=== PATIENT | female | born 1935 | race Caucasian/White ===

== ENCOUNTER → 2020-12-27 | Outpatient (CLI) | payer MEDICARE ==
--- NOTE | 2020-12-28 09:55 | BD ---
EXAMINATION TYPE: Axial Bone Density DATE OF EXAM: 12/27/2020 COMPARISON: NONE CLINICAL HISTORY: Height: 62 Weight: 212.5 FRAX RISK QUESTIONS: Alcohol (3 or more units per day): no Family History (Parent hip fracture): no Glucocorticoids (More than 3mos): no (Ex: prednisone, prednisolone, methylprednisolone, dexamethasone, and hydrocortisone). History of Fracture in Adulthood: yes Secondary Osteoporosis: 1. Type 1 Diabetes: no 2. Hyperthyroidism: no 3. Menopause before 45: yes 4. Malnutrition: no 5. Chronic liver disease: no Rheumatoid Arthritis: no Current Tobacco Use: no RISK FACTORS HISTORY OF: Surgery to Spine/Hip(right/left)/Wrist (right/left): no Family History of Osteoporosis: yes Active: yes Diet low in dairy products/other sources of calcium: no Postmenopausal woman: before age 46 Lost more than 2 inches in height since high school: yes MEDICATIONS: blood pressure meds, Protonix, sinus meds, sleeping pills Additional History: EXAM MEASUREMENTS: Bone mineral densitometry was performed using the Trot System. Bone mineral density as measured about the Lumbar spine is: ----- L1-L4(G/cm2): 1.255 T Score Values are as follows: ----- L2: 0.4 ----- L3: 1.2 ----- L4: 0.4 ----- L1-L4: 0.6 Bone mineral density : baseline Bone mineral density about the R hip (g/cm2): 0.841 Bone mineral density about the L hip (g/cm2): 0.713 T Score values are as follows: -----R Neck: -1.4 -----L Neck: -2.3 -----R Total: -1.4 -----L Total: -2.0 Bone mineral density : baseline Major osteoporotic fracture risk is 15.9% and hip fracture risk is 5.2% in 10 year probability of fra cture. IMPRESSION: Osteopenia (T Score between -2.5 and -1). There is slightly increased risk of fracture and the patient may be considered for treatment. Re-Screen 2-5 years. NOTE: T-SCORE=SD OF THE YOUNG ADULT MEAN.
== END | disposition home or self-care (01) ==
LOC: RADBDWWP 12:43
PROVIDERS: ATTEND Family Medicine
DX: M85.89 Other specified disorders of bone density and structure, multiple sites (principal)
CPT/HCPCS: 77080

== ENCOUNTER → 2021-01-23 | Outpatient (CLI) | payer MEDICARE ==
[2021-01-23 11:13] LABS: HGB 14.8 gm/dL (11.4-16.0); MCH 29.8 pg (25.0-35.0); MCHC 32.9 g/dL (31.0-37.0); MCV 90.6 fL (80.0-100.0); Mean Platelet Volume 9.2; Platelet Count 224 k/uL (150-450); RBC 4.97 m/uL (3.80-5.40); RDW 13.2 % (11.5-15.5); WBC 9.3 k/uL (3.8-10.6)
[2021-01-23 11:27] LABS: INR 0.9 (<1.2); Partial Thromboplastin Time 23.1 sec (22.0-30.0)
[2021-01-23 11:52] LABS: ALT 16 U/L (4-34); AST 29 U/L (14-36); African American GFR (CKD) >90 (>60 ml/min/1.73 sqM); Albumin 4.5 g/dL (3.5-5.0); Alkaline Phosphatase 64 U/L (38-126); Blood Urea Nitrogen 12 mg/dL (7-17); Carbon Dioxide 27 mmol/L (22-30); Glucose 92 mg/dL (74-99); Non-African American GFR(CKD) 81 (>60 ml/min/1.73 sqM); Total Bilirubin 0.9 mg/dL (0.2-1.3); Total Protein 7.4 g/dL (6.3-8.2)
[2021-01-23 11:55] LABS: Anion Gap 9 mmol/L; Chloride 99 mmol/L (98-107); Potassium 4.4 mmol/L (3.5-5.1); Sodium 135 mmol/L (137-145)
[2021-01-23 12:34] LABS: Appearance,Urine Clear (Clear); Bilirubin,Urine Negative (Negative); Blood,Urine Negative (Negative); Color,Urine Light Yellow; Glucose,Urine (UA) Negative (Negative); Ketones,Urine Negative (Negative); Leukocyte Esterase,Urine Negative (Negative); Nitrite,Urine Negative (Negative); PH, Urine 5.5 (5.0-8.0); Protein,Urine Negative (Negative); Specific Gravity,Urine 1.006 (1.001-1.035); Urobilinogen,Urine <2.0 mg/dL (<2.0)
== END | disposition home or self-care (01) ==
LOC: LABPAT 10:17
PROVIDERS: ATTEND Orthopaedic Surgery
DX: Z01.812 Encounter for preprocedural laboratory examination (principal)
CPT/HCPCS: 36415; 80053; 81003; 85027; 85610; 85730; 87070

== ENCOUNTER 2021-02-18 07:17 | Observation (INO) | payer MEDICARE ==
[2021-02-08 13:10] VITALS: BMI 36.3
[~2021-02-18 07:17] MED LIST: ACETAMINOPHEN TAB 500 MG TAB PO PRN; GABAPENTIN 300 MG CAP PO PRN; HYDROmorphone 0.5 MG/0.5 ML SYRINGE IVP PRN; MELOXICAM 7.5 MG TAB PO PRN; ONDANSETRON 4 MG/2 ML VIAL IVP ONE; ROPIVACAINE/EPI/CLONIDINE/KET 50 ML SYRINGE MISCELLANE PRN; TRANEXAMIC ACID 1,000 MG in SODIUM CHLORIDE 0.9% 100 ML IVPB PRN; VANCOMYCIN 1,500 MG in SODIUM CHLORIDE 0.9% 250 ML IVPB PRN
[2021-02-18] MEDS ORDERED: MIDAZOLAM 2 MG/2 ML VIAL IV ONE ×3 (08:15→08:36)
[2021-02-18] MEDS: LACTATED RINGERS 1,000 ML IV SCH (08:15)
[2021-02-18] MEDS ORDERED: MAGNESIUM HYDROXIDE 2,400 MG/10 ML CUP PO PRN (09:00)
[2021-02-18] MEDS ORDERED: NA PHOS,M-B/NA PHOS,DI-BA 133 ML ENEMA RECTAL PRN (09:00)
[2021-02-18] MEDS ORDERED: bisacodyL 10 MG SUPP RECTAL PRN (09:00)
[2021-02-18] MEDS ORDERED: NALOXONE 0.4 MG/ML 1 ML VIAL IV PRN (09:00)
[2021-02-18] MEDS ORDERED: ONDANSETRON 4 MG/2 ML VIAL IVP PRN (09:00)
[2021-02-18] MEDS ORDERED: HYDROmorphone 0.2 MG/1 ML SYRINGE IVP PRN (09:00)
[2021-02-18] MEDS ORDERED: HYDROmorphone 0.5 MG/0.5 ML SYRINGE IVP PRN (09:00)
[2021-02-18] MEDS ORDERED: DEXAMETHASONE SOD PHOSPHATE 4 MG/ML 1 ML VIAL ONE (09:17)
[2021-02-18] MEDS ORDERED: SODIUM CHLORIDE 0.9% 100 ML BAG ONE (09:17)
[2021-02-18] MEDS ORDERED: fentaNYL (PF) 50 MCG/ML 2 ML AMP ONE (09:17)
[2021-02-18] MEDS ORDERED: ROPIVACAINE 5 MG/ML 30 ML VIAL ONE (09:17)
[2021-02-18] MEDS ORDERED: MIDAZOLAM 2 MG/2 ML VIAL ONE (09:17)
[2021-02-18] MEDS ORDERED: TRANEXAMIC ACID 1,000 MG/10 ML VIAL ONE (09:17)
[2021-02-18] MEDS ORDERED: ceFAZolin 1,000 MG in SODIUM CHLORIDE 0.9% 1,000 ML IRRIGATION ONE (09:44)
--- NOTE | 2021-02-18 10:24 | P.OP ---
Date of Procedure: 02/18/21 Preoperative Diagnosis: Severe osteoarthritis left knee Postoperative Diagnosis: Severe osteoarthritis left knee Procedure(s) Performed: Left total knee arthroplasty Implants: Franco [employer] Nephew Journey II CR Oxinium cruciate retaining femoral component size 4, left [employer] Journey nonporous tibial baseplate size 3, left [employer] Journey II, XLPE Deep Dished articular insert, size 9 mm, Size 3- 4, left [employer] Journey Meera II resurfacing patellar component, oval, 29 mm All components were cemented using Palacos R bone cement The articulation is Oxinium on polyethylene Anesthesia: spinal Surgeon: Nikolas Lomas [employer] Specialist #1: Ela Knight Estimated Blood Loss (ml): 30 Pathology: other (Bone and cartilage) Condition: stable Disposition: PACU Indications for Procedure: After failure of conservative treatment we discussed the surgical and nonsurgical treatment options at length. Patient wishes to proceed with a total knee arthroplasty. Complications specific to this procedure were discussed at length, including but not limited to infection, bleeding, stiffness, and nerve injury. Covid-19 was also discussed at length with the patient, and they are aware of the current policies and procedures. The patient was given the option of delaying surgery, but they elect to proceed knowing these risks. Patient is aware of all these complications and informed consent was obtained Operative Findings: The operative findings are consistent with severe osteoarthritis of the left knee Description of Procedure: Patient was seen in the preoperative area and the consent was reviewed and the operative site was marked with a skin marker. The patient verified the procedure and the operative site. An adductor canal pain catheter and an iPACK block was placed by anesthesia in the preoperative area. The patient was then brought to the operating room and given preoperative antibiotics intravenously. A gram of transexamic acid was given intravenously. A spinal anesthetic was administered by the anesthesia department. A tourniquet was placed on the upper thigh and the lower extremity was prepped with chlorhexidine and draped in usual sterile fashion. A universal timeout was then performed which confirmed the patient's name, surgical site, ALLERGIES, and consent. The lower extremity was then exsanguinated and tourniquet was inflated to 250 mmHg. A standard anterior midline approach to the knee was performed. The skin and subcutaneous tissue were sharply dissected down to the patellar tendon. A medial parapatellar arthrotomy was then performed. The knee was then extended, the patellar was everted, and the knee was again flexed. The infra-patellar fat pad was removed in order to enhance exposure. The anterior horns of both menisci were excised, and a release was performed to the posterior medial aspect of the knee. On gross visual inspection, there was complete loss of articular cartilage in the medial and patellofemoral joint spaces. There was also significant cartilage damage in the lateral compartment. There were multiple periarticular osteophytes globally about the knee which were then removed with a Ronguer. The femoral canal was then opened with the 9.5 mm intramedullary drill. The 8 mm intramedullary farrukh was then inserted into the femoral canal with the distal femoral cutting guide set for 5 of valgus. The distal femoral cutting block was then pinned in place. The intramedullary farrukh was then removed, and the distal femur was then cut. The cutting block was then removed and the cut was checked for symmetry. The resected bone was then measured to confirm the appropriate distal femoral resection. Next, the sizing guide was then placed and set for 3 external rotation based off of the epicondylar axis and Whitesides line. Pins were then placed and the drill holes, and the femur was sized with the sizing stylus. The pins were then removed, and the sizing guide was then removed. The spikes of the femoral block was then placed into the predrilled holes, and malleted into place. Two 45 mm pins were then placed into the fixation holes on the cutting block. An shirley wing was then used to ensure there would be no notching with the anterior cut. The anterior condyles were cut without notching. The anterior chord cut was then performed, followed by the posterior cut, posterior chamfer cut, and the anterior chamfer cut. The collateral ligaments were protected during the entire process. The cutting block was then removed. Any remaining bone and osteophytes were removed from the femur with a Rominger. The femoral canal was plugged with autologous bone. Attention was then directed to the tibia. The remaining ACL was removed with a Ronguer, and the tibia was then gently subluxed forward with a large bent knee retractor. Any remaining menisci were excised. The posterior lateral corner was cauterized in order to coagulate the lateral geniculate artery. The extra medullary tibial cutting guide was then placed, set for the appropriate rotation, slope, and depth of resection. The proximal tibia cutting guide was then pinned in place. Proximal tibia was then cut and sized. The femoral trial was placed. A narrow saw blade was then used to remove the anterior intracondylar femoral bone. The CR notch trial was then placed. The tibial trial was placed with the appropriate-sized insert. The knee was able to fully extend and flex to 130 and was stable throughout all range of motion. The knee was then extended and the patella was everted. Patella was then measured, and then using an osteotomy guide, the patella was cut at the appropriate level. The patella was then measured and drilled and the patella trial was then placed. The knee was then taken through range of motion with the patella trial and the patella tracked normally using the no thumbs technique.. The knee was then extended patella trial was then removed and the patella was everted. Knee was then flexed and lug holes were drilled through the femoral trial and the femoral trial was then removed. The tibial was then re-exposed, and the tibial broach guide was then pinned in place after it was set for the appropriate rotation to allow for the most coverage without overhang. The tibia was then reamed and broached. The cut surfaces of bone were then irrigated with pulsatile lavage. The knee was also irrigated with Irrisept solution. The components were then opened, the cement was mixed, and the components were then cemented in place. The cement was allowed to harden with the knee in full extension. After the cemented hardened. The tourniquet was released, and hemostasis was obtained. A second gram of transexamic acid was given intravenously. The knee was again irrigated. The knee was again taken through range of motion and found to be stable throughout all range of motion of 0-130, and the patella tracked normally. The fascia was then closed with 0 Vicryl followed by #2 strata fix suture. The subcutaneous tissue was closed with 3-0 Vicryl and 3-0 strata fix. Exofin glue was used for the skin and placed with the knee in flexion. After the glue had dried, and Optafoam silver impregnated dressing was applied. The patient was then transferred to recovery room in stable condition. The safety assistant MARY ELLEN Lucia was required due the complexity surgery and the need for a skilled medical or surgical instrument maker. She assisted in positioning, draping, retraction, and closure of the wound.
[2021-02-18] MEDS ORDERED: ROPIVACAINE 0.2%-NS ON-Q PUMP 1,090 MG, EMPTY PAIN BALL 1 EACH MISCELLANE PRN (11:11)
--- NOTE | 2021-02-18 11:48 | XR ---
EXAMINATION TYPE: XR knee limited LT DATE OF EXAM: 02/18/2021 CLINICAL HISTORY: Postoperative evaluation Two views of the left knee are submitted. Identified are changes of total knee arthroplasty with fem oral and tibial components appearing well seated. Postsurgical soft tissue changes are noted. Align ment is anatomic.
[2021-02-18] MEDS: CLINDAMYCIN 900 MG in DEXTROSE 5% IN WATER 50 ML IVPB SCH ×4 (13:10→19:21)
[2021-02-18] MEDS: HYDROcodone/APAP 7.5-325MG 1 EACH TAB PO PRN ×2 (13:20→19:20)
[2021-02-18] MEDS ORDERED: TEMAZEPAM 15 MG CAP PO PRN (14:10)
[2021-02-18] MEDS ORDERED: LORATADINE 10 MG TAB PO PRN (14:10)
[2021-02-18] MEDS: atenoloL 25 MG TAB PO SCH (17:56)
--- NOTE | 2021-02-18 18:41 | P.ANPRN ---
Procedure Note - Anesthesia - Nerve Block Performed Left Adductor Canal Infusion Time Out Performed: Yes Date of Procedure: 02/18/21 Procedure Start Time: 08:35 Procedure Stop Time: 08:47 Location of Patient: PreOp Indication: Acute Post-Operative Pain, Requested by Surgeon Sedation Type: Sedate with meaningful contact maintained Preparation: Sterile Prep, Sterile Dressing Position: Supine Catheter: Indwelling Needle Types: Pajunk Needle Gauge: 21 Ultrasound used to visualize needle placement: Yes Ultrasound used to observe medication spread: Yes Blood Aspirated: No Pain Paresthesia on Injection Noted: No Resistance on Injection: Normal Image Stored and Saved: Yes Events: Uneventful and Well Tolerated (Ropivacaine 0.5% 20 mL)
--- NOTE | 2021-02-18 18:42 | P.ANPRN ---
Procedure Note - Anesthesia - Nerve Block Performed Left iPack Single Time Out Performed: Yes Date of Procedure: 02/18/21 Procedure Start Time: 08:48 Procedure Stop Time: 08:52 Location of Patient: PreOp Indication: Acute Post-Operative Pain, Requested by Surgeon Sedation Type: Sedate with meaningful contact maintained Preparation: Sterile Prep Position: Supine Needle Types: Pajunk Needle Gauge: 21 Ultrasound used to visualize needle placement: Yes Ultrasound used to observe medication spread: Yes Blood Aspirated: No Pain Paresthesia on Injection Noted: No Resistance on Injection: Normal Image Stored and Saved: Yes Events: Uneventful and Well Tolerated (Ropivacaine 0.5% plus dexamethasone 4 mg)
[2021-02-18] MEDS: SODIUM CHLORIDE 0.9% 1,000 ML IV SCH ×2 (19:22→21:28)
[2021-02-18] MEDS: SENNOSIDES-DOCUSATE SODIUM 1 EACH TAB PO SCH (21:29)
[2021-02-18] MEDS: ASPIRIN 325 MG TAB PO SCH (21:29)
--- NOTE | 2021-02-18 22:40 | CONS ---
CONSULTATION DATE OF SERVICE: 02/18/2021 REASON FOR CONSULTATION: Advice regarding hypertension and other multiple medical issues, requested by Dr. Lomas. HISTORY OF PRESENT ILLNESS: This 85-year-old woman with a past medical history of multiple medical problems, including GERD, history of hypertension, DJD, history of bariatric surgery, history of cardiac catheterization, being followed by Dr. Petesron in the outpatient setting, underwent left total knee arthroplasty for severe DJD by Dr. Lomas. The patient tolerated the procedure well. There is no history of any fever, rigors or chills. No history of headache, loss of consciousness, seizures at this time. PAST MEDICAL HISTORY: GERD, hypertension, DJD, history of bariatric surgery, history of cardiac catheterization. MEDICATIONS: Home medications prior to admission include Clarinex, Tenormin, Lotrel, Protonix, Lunesta, vitamin D3, multivitamins, Fosamax, Tylenol, Senokot, Zofran. Doses are reviewed. ALLERGIES: CEPHALEXIN, SULFA. FAMILY HISTORY: History of cancer, leukemia. SOCIAL HISTORY: Previous history of smoking. No history of alcohol intake. REVIEW OF SYSTEMS: ENT: No diminished hearing. No diminished vision. CARDIOVASCULAR SYSTEM: No angina, palpitations. RESPIRATORY SYSTEM: As mentioned earlier. GI: No nausea, vomiting, diarrhea. : No dysuria. NERVOUS SYSTEM: No numbness, weakness. ALLERGY/IMMUNOLOGY: No asthma or hay fever. MUSCULOSKELETAL: As mentioned earlier. HEMATOLOGY/ONCOLOGY: No history of anemia. ENDOCRINE: No history of diabetes, hypothyroidism. CONSTITUTIONAL: As mentioned earlier. DERMATOLOGY: Negative. RHEUMATOLOGY: Negative. PSYCHIATRY: As mentioned earlier. PHYSICAL EXAMINATION: Patient alert and oriented x3. Pulse 61, blood pressure 113/79, respiration 17, temperature normal, pulse ox 94% on 1 L. HEENT: Conjunctivae normal. NECK: No jugular venous distention. CARDIOVASCULAR: S1, S2 muffled. RESPIRATION: Breath sounds diminished at the bases. No rhonchi. No crackles. ABDOMEN: Soft, nontender. LEGS: Status post left knee arthroplasty. NERVOUS SYSTEM: Higher functions as mentioned earlier. Moves all 4 limbs. No focal motor or sensory deficit. LYMPHATICS: No lymph node palpable in neck, axillae or groin. SKIN: No ulcer, rash, bleeding. JOINTS: No active deforming arthropathy. LABS: Preop labs are CBC within normal limits. Coags are normal and chemistry shows sodium 135; otherwise normal. ASSESSMENT: 1. Status post left total knee joint arthroplasty. 2. Gastroesophageal reflux disease. 3. Mild hyponatremia in the preop labs. 4. Hard of hearing. 5. Hypertension. 6. History of degenerative joint disease. 7. History of bariatric surgery. 8. History of hernia surgery. 9. History of stomach stapling in 1979. 10.Remote history of nicotine dependence. RECOMMENDATIONS AND DISCUSSION: In this 85-year-old woman presented after surgery, at this time I recommend to continue current medications, continue symptomatic treatment. Resume the home medications. DVT prophylaxis. I would also recommend repeat labs in the morning to ensure normalcy. Otherwise, the patient may be asked to follow up with her primary physician closely. Thank you, Dr. Lomas, for letting us participate in the care of this patient. We will closely follow. Incentive spirometry. Ensure oxygenation. MARY / DARYL: [id number] /
[2021-02-19] MEDS: HYDROcodone/APAP 7.5-325MG 1 EACH TAB PO PRN ×4 (02:38→20:14)
[2021-02-19] MEDS: LACTATED RINGERS 1,000 ML IV SCH (06:32)
--- NOTE | 2021-02-19 07:24 | P.PN ---
Progress Note - Text 02/19/21 702am 55-year-old status post total knee replacement by Dr. Connor height off. Patient has an On-Q pump for postop pain control solution running at 8 mL an hour she has a VAS of 2. Dressing clean dry and intact and to continue On-Q pump infusion
[2021-02-19] MEDS ORDERED: PANTOPRAZOLE 40 MG TABLET PO SCH (07:30)
[2021-02-19] MEDS: ASPIRIN 325 MG TAB PO SCH ×2 (08:04→20:14)
[2021-02-19] MEDS: CHOLECALCIFEROL 25 MCG (1000 IU) TABLET PO SCH (08:05)
[2021-02-19] MEDS: lisinopriL 20 MG TAB PO SCH (08:05)
[2021-02-19] MEDS: MULTIVITAMINS, THERA 1 EACH TAB PO SCH (08:05)
[2021-02-19] MEDS: amLODIPine 5 MG TAB PO SCH (08:05)
--- NOTE | 2021-02-19 08:48 | P.DS ---
Providers Expected date of discharge: 02/19/21 Attending physician: Nikolas Lomas Consults: 02/18/21 14:02 Consult Physician Routine Consulting Provider: Lamberto Tyson Consult Reason/Comments: medical management Do you want consulting provider notified?: Yes Primary care physician: Nakita Peterson - Discharge Diagnosis(es) (1) Osteoarthritis of left knee Current Visit: Yes Status: Acute (2) Status post total left knee replacement Current Visit: Yes Status: Acute Hospital Course: This is an 85-year-old female with known history of degenerative arthritis of the left knee. The patient presented for evaluation as an outpatient. After discussion and consideration patient elects to proceed with total knee arthroplasty. The patient is seen preoperatively by Dr. Lomas and medically cleared for surgery by their primary care physician. Patient is admitted to [facility] on 02/18/2021 for total knee arthroplasty. The procedure is performed without complication or sequelae. The patient is doing well postoperatively. Labs and vital signs are stable on day of discharge. On day of discharge patient's knee incision is healing well. There is minimal erythema. There is no drainage noted at this time. There is minimal soft t issue swelling to the knee. Patient has full foot and ankle motion without difficulty or pain. Calf is soft and nontender to palpation. Neurovascular status to the left lower extremity is intact. Patient is discharged home in good condition. Opioid start talking form is reviewed and signed. Please see med rec for accurate list of home medications. Plan - Discharge Summary Discharge Rx Participant: Yes New Discharge Prescriptions: New Aspirin 325 mg PO BID #60 tab HYDROcodone/APAP 7.5-325MG [[place]irie 7.5-325] 1 - 2 tab PO Q6H PRN #32 tab PRN Reason: Pain Sennosides [Senokot] 2 tab PO DAILY PRN #60 tablet PRN Reason: Constipation Ondansetron Odt [Zofran Odt] 1 tab PO Q8HR PRN #10 tab PRN Reason: Nausea No Action Eszopiclone [Lunesta] 1 mg PO HS PRN PRN Reason: sleep Aspirin 81 mg PO DAILY amLODIPine BESYLATE/BENAZEPRIL [Lotrel 5-20 mg Capsule] 1 each PO DAILY atenoloL [Tenormin] 25 mg PO AC-SUPPER Pantoprazole Sodium [Protonix] 40 mg PO Q48H Multivitamin [Multivitamins Adult Gummies] 2 each PO DAILY Alendronate Sodium [Fosamax] 70 mg PO MUNOZ Desloratadine [Clarinex] 5 mg PO DAILY PRN PRN Reason: sinus sx Cholecalciferol [Vitamin D3 (25 Mcg = 1000 Iu)] 50 mcg PO DAILY Acetaminophen [Tylenol Extra Strength] 500 mg PO DIRECTED PRN PRN Reason: Pain Discharge Medication List Aspirin 81 mg PO DAILY 12/26/14 [History] Eszopiclone [Lunesta] 1 mg PO HS PRN 12/26/14 [History] Pantoprazole Sodium [Protonix] 40 mg PO Q48H 12/26/14 [History] amLODIPine BESYLATE/BENAZEPRIL [Lotrel 5-20 mg Capsule] 1 each PO DAILY 12/26/14 [History] atenoloL [Tenormin] 25 mg PO AC-SUPPER 12/26/14 [History] Acetaminophen [Tylenol Extra Strength] 500 mg PO DIRECTED PRN 02/08/21 [History] Alendronate Sodium [Fosamax] 70 mg PO MUNOZ 02/08/21 [History] Cholecalciferol [Vitamin D3 (25 Mcg = 1000 Iu)] 50 mcg PO DAILY 02/08/21 [History] Desloratadine [Clarinex] 5 mg PO DAILY PRN 02/08/21 [History] Multivitamin [Multivitamins Adult Gummies] 2 each PO DAILY 02/08/21 [History] Aspirin 325 mg PO BID #60 tab 02/18/21 [Rx] HYDROcodone/APAP 7.5-325MG [Prairie 7.5-325] 1 - 2 tab PO Q6H PRN #32 tab 02/18/21 [Rx] Ondansetron Odt [Zofran Odt] 1 tab PO Q8HR PRN #10 tab 02/18/21 [Rx] Sennosides [Senokot] 2 tab PO DAILY PRN #60 tablet 02/18/21 [Rx] Follow up Appointment(s)/Referral(s): [facility],Equipment [NON-STAFF] - (*Please call [facility] once home to arrange delivery of Continuous Passive Motion (CPM) machine. ) [facility], [NON-STAFF] - ([facility] will call patient to set up the time for first visit for 02/20/21.) Nikolas Lomas DO [Doctor of Osteopathic Medicine] - 03/04/21 2:45 pm Ambulatory/Diagnostic Orders: Continuous Passive Motion (CPM) Machine [DME.AMB1] Time Frame: 3 Weeks, Location: None Selected Activity/Diet/Wound Care/Special Instructions: Weightbearing as tolerated with a walker. CPM 5-6h daily as tolerated. Leave dressing intact. Dressing may be removed by home care nurse or by patient in 7 days. Then change dressing twice daily until follow up. May shower with initial dressing intact and after removal. If dressing become saturated, please remove. Recommend use of compression stockings daily until follow up to help prevent swelling and blood clots. May remove at night before sleeping. Please take aspirin 325mg twice daily for 30 days to prevent blood clots. Please follow up with [facility] and call with any questions or concerns, . Discharge Disposition: HOME WITH HOME HEALTH SERVICES
[2021-02-19 10:00] LABS: Basophils # (A) 0.03 X 10*3/uL (0.00-0.10); Basophils % (A) 0.2 %; Eosinophils # (A) 0.02 X 10*3/uL (0.04-0.35); Eosinophils % (A) 0.1 %; HCT 34.8 % (37.2-46.3); HGB 11.2 g/dL (12.0-15.0); Lymphocytes # (A) 1.19 X 10*3/uL (0.90-5.00); Lymphocytes % (A) 8.9 %; MCH 29.2 pg (27.0-32.0); MCHC 32.2 g/dL (32.0-37.0); MCV 90.9 fL (80.0-97.0); Mean Platelet Volume 12.1 fL (9.5-12.2); Monocytes # (A) 1.01 X 10*3/uL (0.20-1.00); Monocytes % (A) 7.5 %; Platelet Count 170 X 10*3/uL (140-440); RBC 3.83 X 10*6/uL (4.10-5.20); RDW 13.3 % (11.5-14.5); WBC 13.39 X 10*3/uL (4.50-10.00)
[2021-02-19 12:48] LABS: African American GFR (CKD) 92.2 (60.0-200.0); Anion Gap 9.3 mmol/L (4.00-12.00); Calcium 8.6 mg/dL (8.7-10.3); Carbon Dioxide 23.7 mmol/L (21.6-31.8); Non-African American GFR(CKD) 79.6 (60.0-200.0); Potassium 4.6 mmol/L (3.5-5.5)
--- NOTE | 2021-02-19 14:46 | PN ---
PROGRESS NOTE DATE OF SERVICE: 02/19/2021 This 85-year-old woman who was admitted after total knee arthroplasty is improving significantly. No chest pain. No palpitations. No fever. PHYSICAL EXAMINATION: Alert and oriented x3. Pulse 60, blood pressure 132/73, respiration 18, temperature 98.2, pulse ox 96% on room air. HEENT: Conjunctivae normal. NECK: No jugular venous distention. CARDIOVASCULAR: S1, S2 muffled. RESPIRATION: Breath sounds diminished at the bases. No rhonchi. No crackles. ABDOMEN: Soft. LEGS: Status post surgery. NERVOUS SYSTEM: No focal deficit. LABS: WBC 13.2, hemoglobin 11.2, sodium 137. ASSESSMENT: 1. Status post left total knee joint arthroplasty. 2. Gastroesophageal reflux disease. 3. Mild hyponatremia in the preop labs, improved. 4. Hard of hearing. 5. Hypertension. 6. History of degenerative joint disease. 7. History of bariatric surgery. 8. History of hernia surgery. 9. History of stomach stapling in 1979. 10.Remote history of nicotine dependence. RECOMMENDATIONS AND DISCUSSION: I recommend to continue current medications, continue with symptomatic treatment. Otherwise, resume the home medications. Follow up with primary physician in the outpatient setting. The rest of the recommendations per Orthopedic Surgery. Further recommendations to follow. DVT prophylaxis. MMODL / IJN: [id number] /
[2021-02-19] MEDS: HYDROmorphone 0.5 MG/0.5 ML SYRINGE IVP PRN ×2 (14:53→22:50)
[2021-02-19] MEDS: SODIUM CHLORIDE 0.9% 1,000 ML IV SCH (16:50)
[2021-02-19] MEDS: atenoloL 25 MG TAB PO SCH (17:07)
[2021-02-19] MEDS: SENNOSIDES-DOCUSATE SODIUM 1 EACH TAB PO SCH (20:14)
[2021-02-20] MEDS: SODIUM CHLORIDE 0.9% 1,000 ML IV SCH (02:33)
[2021-02-20] MEDS: LACTATED RINGERS 1,000 ML IV SCH (05:04)
[2021-02-20] MEDS: HYDROmorphone 0.5 MG/0.5 ML SYRINGE IVP PRN (05:07)
[2021-02-20] MEDS: HYDROcodone/APAP 7.5-325MG 1 EACH TAB PO PRN ×2 (08:06→13:07)
[2021-02-20] MEDS: CHOLECALCIFEROL 25 MCG (1000 IU) TABLET PO SCH (08:08)
[2021-02-20] MEDS: ASPIRIN 325 MG TAB PO SCH (08:08)
[2021-02-20] MEDS: MULTIVITAMINS, THERA 1 EACH TAB PO SCH (08:08)
[2021-02-20 09:22] VITALS: BP 135/73; PULSE 71; RESP 16; TEMP 98
[2021-02-20] MEDS: amLODIPine 5 MG TAB PO SCH (10:38)
[2021-02-20] MEDS: lisinopriL 20 MG TAB PO SCH (10:38)
--- NOTE | 2021-02-20 15:16 | PN ---
PROGRESS NOTE DATE OF SERVICE: 02/20/2021 This 85-year-old woman who was admitted with left total knee joint arthroplasty is improving significantly. No chest pain. No palpitations. No fever. PHYSICAL EXAMINATION: Alert and oriented x3. Pulse 71, blood pressure 135/73, respirations 16, temperature 98 degrees, pulse ox 97% on room air. HEENT: Conjunctivae normal. NECK: No jugular venous distention. CARDIOVASCULAR: S1, S2 muffled. RESPIRATION: Breath sounds diminished at the bases. No rhonchi. No crackles. ABDOMEN: Soft, nontender. LEGS: No edema. No swelling. NERVOUS SYSTEM: No focal deficit. LABS: WBC 13.9, hemoglobin 11.2, calcium is 8.6. ASSESSMENT: 1. Status post left total knee arthroplasty. 2. Gastroesophageal reflux disease. 3. Mild hyponatremia with preop labs, improved. 4. Hard of hearing. 5. Hypertension. 6. History of degenerative joint disease. 7. History of bariatric surgery. 8. Mild hypocalcemia. 9. History of hernia surgery. 10.History of stomach stapling in 1979. 11.Remote history of nicotine dependence. RECOMMENDATIONS AND DISCUSSION: I recommend to continue current medications, continue with symptomatic treatment. Otherwise, DVT prophylaxis. Resume the home medications. Closely monitor. Recommend close followup with primary physician after discharge. Rest of the recommendations per Orthopedic Surgery. MMODL / IJN: [id number] /
== END 2021-02-20 13:32 | disposition home health service (06) ==
LOC: OR 07:17 → 4SSUR 11:37 → OR 02-20 11:36 → 4SSUR 02-20 11:36
PROVIDERS: ADMIT Orthopaedic Surgery; ATTEND Orthopaedic Surgery
DX: M17.12 Unilateral primary osteoarthritis, left knee (principal); E87.1 Hypo-osmolality and hyponatremia; M21.062 Valgus deformity, not elsewhere classified, left knee; M25.762 Osteophyte, left knee; I10 Essential (primary) hypertension; K21.9 Gastro-esophageal reflux disease without esophagitis; H91.90 Unspecified hearing loss, unspecified ear; Z79.83 Long term (current) use of bisphosphonates; Z79.82 Long term (current) use of aspirin; Z79.899 Other long term (current) drug therapy; Z88.1 Allergy status to other antibiotic agents; Z88.2 Allergy status to sulfonamides; Z87.891 Personal history of nicotine dependence; Z97.3 Presence of spectacles and contact lenses; Z90.710 Acquired absence of both cervix and uterus; Z90.49 Acquired absence of other specified parts of digestive tract; Z96.651 Presence of right artificial knee joint; Z98.890 Other specified postprocedural states; Z98.84 Bariatric surgery status; Z80.6 Family history of leukemia; Z82.49 Family history of ischemic heart disease and other diseases of the circulatory system
CPT/HCPCS: 97530; 97161; 64999; 64448; 76942; 80048; 85025; 88300; 73560; 27447; G0378; C1713; C1776; J2250; J3370; J1100; J2405; J0690; J3010; J2795 ×2; J1170 ×2

== ENCOUNTER → 2023-01-14 | Outpatient (CLI) | payer MEDICARE ==
--- NOTE | 2023-01-14 14:44 | FL ---
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 Food sticking sensation in the t hroat. Total fluoroscopy time: 62 seconds. Total images: None. Real-time fluoroscopy support was provided to speech pathology. Total DAP: 5 mGycm2 TECHNIQUE: Deglutition study is performed utilizing thin liquid barium, barium thick applesauce, and barium coated cracker. COMPARISON: None. FINDINGS: The oral and pharyngeal phases show satisfactory initiation and propagation with all modalities teste d. The patient is edentulous but otherwise shows normal mastication. There is no evidence of penetra tion or aspiration with any modality tested. No significant pharyngeal residue was appreciated. IMPRESSION: Functional swallow. Please refer to speech therapist notes for further details if necessary.
== END | disposition home or self-care (01) ==
LOC: RADFLMAIN 10:49
PROVIDERS: ATTEND Family Medicine
DX: K13.5 Oral submucous fibrosis (principal)
CPT/HCPCS: 74230